=== PATIENT | female | born 1985 | race Caucasian/White ===

== ENCOUNTER 2017-07-13 08:50 | Day surgery (SDC) | payer OTHER, SELFPAY ==
[2017-07-13 09:18] VITALS: BP 103/57; PULSE 98; RESP 14; TEMP 36.6; O2SAT 100; BMI 22.1
[2017-07-13 09:26] LABS: Hematocrit 38.1 % (37-47); Hemoglobin 12.4 g/dl (12.0-15.0); Mean Corp Hgb Conc 32.5 g/gl (32-36); Mean Corpuscular Hgb 26.3 pg (27.0-32.0); Mean Corpuscular Volume 80.9 fL (81-99); Mean Platelet Vol. 9.3 fl (6.2-12.0); Platelet Count 205 K/mm3 (150-450); RBC Distribution Width CV 13.1 % (11.6-14.6); RBC Distribution Width SD 38.7 fl (35.1-43.9); Red Blood Count 4.71 M/mm3 (4.2-5.4); Scan Indicated on CBC? Y/N NO; White Blood Count 5.8 K/mm3 (4.4-11.0)
[2017-07-13] MEDS: Doxycycline 100 MG CAPSULE PO (09:29)
--- NOTE | 2017-07-13 10:15 | POC_PTH ---
PATIENT: MO GAMBOA LOC: [facility] U#:[id number] AGE/SX: 32/F ROOM: RE07/13/[address]: Dr. Isela Mckeon MD : 1985 BED: DIS: 07/13/2017 SPEC #: [id number] RECD: 07/13/17 15:09 STATUS: SHARONA MARIAA #: [id number] ELY: 07/13/17 10:[address]: Isela Mckeon DEPT: SURGICAL PATHOLOGY RECD BY: Ronny Painter ENTERED: 07/13/17 15:10 SP TYPE: PROD CONC OTHR DR: No Primary Care Phys Tissues: Product of conception, NOS Procedures: Surgery Specimen Level IV HEADER OPERATION: Dilation and curettage, suction PRE-OP DIAGNOSIS: Missed TISSUE SUBMITTED: Products of conception MICROSCOPIC DIAGNOSIS Products of conception: Decidua, immature chorionic villi and gestational endometrium (products of conception). SJ:fani 07/17/17 MICROSCOPIC DESCRIPTION Slides are reviewed. GROSS DESCRIPTION Received in fixative is one container labeled with the patient's name and designated POC. The specimen consists of multiple irregular fragments of pink-red soft tissue that in aggregate measure 6 x 5 x 2 cm. tissue is not identified. Bolt Header tissue is submitted in two cassettes. / SJ:fani 07/14/17 TC:5 CPT: 79636
[2017-07-13 12:07] VITALS: BP 103/57; BP 109/76; PULSE 73; RESP 18; TEMP 36.7; O2SAT 100
[2017-07-13 12:10] VITALS: BP 100/70; BP 103/57; PULSE 62; RESP 18; O2SAT 98
[2017-07-13 12:15] VITALS: BP 103/57; BP 99/65; PULSE 68; RESP 18; O2SAT 100
[2017-07-13 12:20] VITALS: BP 102/65; BP 103/57; PULSE 61; RESP 18; TEMP 36.7; O2SAT 100
--- NOTE | 2017-07-13 12:56 | PCM.DC.D&C ---
Discharge Diet: No Restrictions Discharge Activity: Return to Normal Activity, May Shower, May Take a Tub Bath - in 2 weeks. Allergies/Adverse Reactions: Allergies No Known Allergies Allergy (Verified 07/11/17 16:21) Medications to take at Discharge Vits [Prenatabs FA ] 1 tab PO DAILY 09/06/14 Primary Care Physician: Care Physician,No Primary [Primary Care Provider] -
--- NOTE | 2017-07-13 12:57 | PCM.DC.SUM ---
Discharge Date and Diagnosis - Secondary Discharge Diagnosis Chronic Problems (Last Updated 07/10/17 @ 22:38 by Isela Mckeon MD) Missed (Chronic) Hospital Course and Treatment Summary of Care Provided: The patient is a 32 year old F [] Discharge Diet: No Restrictions Discharge Activity: Return to Normal Activity, May Shower, May Take a Tub Bath - in 2 weeks. Home Medications: Medications to take at Discharge Vits [Prenatabs FA ] 1 tab PO DAILY 09/06/14 Primary Care Physician: Care Physician,No Primary [Primary Care Provider] - Medical Necessity - Tobacco Use Smoking Status: Never smoker Meaningful Use Info Meaningful Use Diagnoses (Choose all that apply): None applicable
[2017-07-13 13:34] VITALS: BP 103/57
--- NOTE | 2017-07-14 05:48 | PCM.OPRPT ---
Problem List (1) Missed Status: Chronic Report of Operation Date of Procedure: 07/13/17 Pre-Operative Diagnosis: missed ab Post-Operative Diagnosis: same Surgery/Procedure Performed:: suction d and c Type of Anesthesia:: Local MAC Specimen's removed: poc Drains: none Estimated Blood Loss (mL): 50 Fluids Replaced: crystalloid Description of Procedure: Patient was evaluated preoperatively and found to have a missed at 8 weeks of with a pole only measuring 5 mm with no heart tones seen. Patient was counseled and offered medical management versus surgical and patient chose suction D&C. Patient received IV anesthesia was prepped and draped in normal sterile fashion in the dorsal lithotomy position. Cervix was grasped with ring forceps and previously dilated to allow passage of a 9 mm suction curette. Uterus sounded 9 cm. Multiple passes were made with the suction curette to remove products of conception and then sharp curettage was formed to confirm all removal of packs of conception. All instruments were removed from the vagina and patient was awoken and taken recovery in stable condition. Grafts/Implants Used: none - Complications none - Admit VTE Documentation VTE Present on Admission: No VTE Mechan Device Prophylaxis: SCD's
== END 2017-07-13 13:41 | disposition home or self-care (01) ==
LOC: SDC 08:59 → AC 10:29
PROVIDERS: Visit Provider Obstetrics & Gynecology
PROC: (CPT 59812; principal; 2017-07-13 10:00)
DX: O03.4 Incomplete spontaneous abortion without complication (principal)
CPT/HCPCS: 59812; 36415; 85027; 86850; 86900; 88305; J7120; J2405

== ENCOUNTER 2017-12-07 14:13 | Day surgery (SDC) | payer OTHER, SELFPAY ==
[2017-12-07] VITALS (7 sets, daily range): BP systolic 94–128; BP diastolic 52–78; PULSE 58–85; RESP 16–18; TEMP 36.6; O2SAT 98–100; BMI 21.8
[2017-12-07] MEDS: Doxycycline 100 MG CAPSULE PO (14:45)
[2017-12-07 14:56] LABS: Hemoglobin 12.4 g/dl (12.0-15.0); Mean Corp Hgb Conc 33.5 g/gl (32-36); Mean Corpuscular Hgb 27.1 pg (27.0-32.0); Mean Platelet Vol. 9.5 fl (6.2-12.0); Platelet Count 195 K/mm3 (150-450); RBC Distribution Width CV 13.1 % (11.6-14.6); RBC Distribution Width SD 39.1 fl (35.1-43.9); Red Blood Count 4.57 M/mm3 (4.2-5.4); White Blood Count 7.8 K/mm3 (4.4-11.0)
[2017-12-07 14:57] LABS: Scan Indicated on CBC? Y/N NO
--- NOTE | 2017-12-07 17:09 | PCM.DC.D&C ---
Discharge Diet: No Restrictions Discharge Activity: Return to Normal Activity, May Shower, May Take a Tub Bath Allergies/Adverse Reactions: Allergies No Known Allergies Allergy (Verified 11/23/17 11:51) Medications to take at Discharge Vits [Prenatabs FA ] 1 tab PO DAILY 09/06/14 Primary Care Physician: Care Physician,No Primary [Primary Care Provider] - Test Results: Test results from this visit will be discussed in further detail at your follow-up appointment, if applicable. Please Follow Up With: Isela Mckeon MD - [phone]
[2017-12-07] MEDS: Oxytocin 30 units/NS 500 ml 30 UNITS/500 ML IV.SOLN 167 UNITS IV (17:42)
--- NOTE | 2017-12-07 19:52 | PCM.OPRPT ---
Problem List (1) Missed Status: Acute Report of Operation Date of Procedure: 12/07/17 Pre-Operative Diagnosis: missed ab Post-Operative Diagnosis: same Surgery/Procedure Performed:: suction d and c Description of Surgical Findings:: 10 week AB Type of Anesthesia:: Local MAC Specimen's removed: poc Description of Procedure: She was placed under MAC local anesthesia was prepped and draped in the normal sterile fashion. Cervix was dilated to allow passage of a 10 mm suction curette. Multiple passes were made after the uterus sounded to 10 cm. Products of conception were removed completely and sharp curettage was performed to confirm removal. After all products were felt to be removed all instruments removed from the vagina and excellent hemostasis was noted. Patient was awoken and taken recovery in stable condition. Products were sent to [facility] for genetic analysis per patient request Grafts/Implants Used: none - Complications none
== END 2017-12-07 18:59 | disposition home or self-care (01) ==
LOC: SDC 14:14 → AC 14:16
PROVIDERS: Visit Provider Obstetrics & Gynecology
PROC: (CPT 59812; principal; 2017-12-07 08:45)
DX: O03.4 Incomplete spontaneous abortion without complication (principal)
CPT/HCPCS: 01965; 59812; 36415; 36430; 85027; 86850; 86870; 86900; 86905; 90384; J7120; J2790

== ENCOUNTER → 2018-01-04 16:45 | Outpatient (CLI) | payer OTHER, SELFPAY ==
[2018-01-08 12:07] LABS: Dilute Prothrombin Time (dPT) 39.7 sec (0.0-55.0); Thrombin Time 16.3 sec (0.0-23.0); dPT Confirm Ratio 0.88 Ratio (0.00-1.40)
[2018-01-09 09:01] LABS: Interpretation Comment: (.)
== END ==
PROVIDERS: Referring Provider Obstetrics & Gynecology; Visit Provider Obstetrics & Gynecology
DX: O26.20 Pregnancy care for patient with recurrent pregnancy loss, unspecified trimester (principal); Z3A.00 Weeks of gestation of pregnancy not specified
CPT/HCPCS: 36415

== ENCOUNTER → 2018-10-08 09:47 | Outpatient (CLI) | payer OTHER, SELFPAY ==
[2018-10-08 11:42] LABS: hCG Titer Quant., Serum 1351 mIU/mL (1-3)
== END ==
PROVIDERS: Referring Provider Obstetrics & Gynecology; Visit Provider Obstetrics & Gynecology
DX: O26.20 Pregnancy care for patient with recurrent pregnancy loss, unspecified trimester (principal); Z3A.00 Weeks of gestation of pregnancy not specified
CPT/HCPCS: 36415; 84702

== ENCOUNTER → 2018-10-10 11:32 | Outpatient (CLI) | payer OTHER, SELFPAY ==
[2017-12-07 14:57] VITALS: BMI 21.8
[2018-10-10 12:40] LABS: hCG Titer Quant., Serum 2435 mIU/mL (1-3)
== END ==
PROVIDERS: Referring Provider Obstetrics & Gynecology; Visit Provider Obstetrics & Gynecology
DX: O26.20 Pregnancy care for patient with recurrent pregnancy loss, unspecified trimester (principal); Z3A.00 Weeks of gestation of pregnancy not specified
CPT/HCPCS: 36415; 84702

== ENCOUNTER → 2018-10-24 13:51 | Outpatient (CLI) | payer OTHER, SELFPAY ==
[2018-10-24 13:36] VITALS: BMI 21.8
[2018-10-24 15:21] LABS: hCG Titer Quant., Serum 17952 mIU/mL (1-3)
== END ==
PROVIDERS: Referring Provider Nurse Practitioner Women's Health; Visit Provider Nurse Practitioner Women's Health
DX: O20.0 Threatened abortion (principal); Z3A.00 Weeks of gestation of pregnancy not specified
CPT/HCPCS: 36415; 84702

== ENCOUNTER → 2020-03-20 18:13 | Outpatient (CLI) | payer OTHER, SELFPAY ==
[2018-10-25 14:34] VITALS: BMI 21.8
--- NOTE | 2020-03-20 18:20 | US_ITS ---
STUDY: FIRST TRIMESTER OBSTETRICAL ULTRASOUND REASON FOR EXAM: Female, 34 years old UNCERTAIN DATES. NO HCG HAS BEEN DRAWN FOR THIS SO FAR. LMP: 01/08/2020 TECHNIQUE: Transabdominal TECHNICAL QUALITY: Adequate. PRIOR ULTRASOUND: None. FINDINGS: There is visualization of a single gestational sac in a normal intrauterine position. The mean sac diameter (MSD) measures 4.82 cm. The gestational sac shape is within normal limits. There is a visualized yolk sac. The yolk sac measures 5.9 mm. There is visualization of the placenta (fungal). There is visualization of a live embryo. The crown-rump length (CRL) measures 3.83 cm, indicating an estimated gestational age (EGA) of 10 weeks, 3 days. There is demonstrated cardiac activity with a heart rate of 176 bpm. The estimated gestation age (EGA) by LMP is 10 weeks, 2 days. The estimated date of delivery (BISHNU) by LMP is 10/14/2020. The estimated gestation age (EGA) by US is 10 weeks, 3 days. The estimated date of delivery (BIHSNU) by US is 10/13/2020. The uterus measures 9.5 x 8.1 x 7.6 cm. There is no demonstrated uterine fibroid. The cervix is closed. Right ovary is not visualized. Left ovary is not visualized. There is no fluid in the cul de sac. US/Init OB < 14Wks US IMPRESSION: Single live intrauterine correlating to gestational age of 10 weeks and 3 days. Details above. Electronically Signed: Rafa Cordero MD (Brooks) at 15:23 EST , Service support ,
== END ==
PROVIDERS: Referring Provider Nurse Practitioner Women's Health; Visit Provider Nurse Practitioner Women's Health
DX: O26.20 Pregnancy care for patient with recurrent pregnancy loss, unspecified trimester (principal); Z3A.00 Weeks of gestation of pregnancy not specified
CPT/HCPCS: 76801

== ENCOUNTER → 2020-04-02 10:42 | Outpatient (CLI) | payer OTHER, SELFPAY ==
[2020-04-02 10:10] VITALS: BMI 22.4
[2020-04-02 11:21] LABS: Absolute Lymphocyte Count 1.58 X10^3/uL (0.83-4.51); Absolute Neutrophil Count 4.7 X10^3/uL (2.0-7.7); Basophil# 0.06 X10^3/uL; Basophil% 0.9 % (0-1); Eosinophil# 0.09 X10^3/uL; Eosinophils% 1.3 % (0-5); Hematocrit 39.6 % (37-47); Hemoglobin 13.4 g/dL (12.0-15.0); Lymphocyte # 1.58 X10^3/ul (4.0); Lymphocyte % 22.9 % (19-41); Mean Corp Hgb Conc 33.8 g/dL (32-36); Mean Corpuscular Hgb 27.8 pg (27.0-32.0); Mean Corpuscular Volume 82.2 fL (81-99); Monocyte# 0.43 X10^3/uL; Monocyte% 6.2 % (0-10); NRBC Flagged by Analyzer 0 % (0-5); Neutrophil # 4.68 X10^3/uL (2.7-7.7); Platelet Count 211 K/mm3 (150-450); RBC Distribution Width CV 12.3 % (11.6-14.6); RBC Distribution Width SD 36.6 fl (35.1-43.9); Red Blood Count 4.82 M/mm3 (4.2-5.4); White Blood Count 6.9 K/mm3 (4.4-11.0)
[2020-04-02 12:49] LABS: HIV - WCH Non-Reactive (Nonreactive); Hepatitis B Surface Antigen Non-Reactive (Nonreactive); Hepatitis C Antibody Non-Reactive (Nonreactive); Rubella IgG Reactive (Nonreactive)
[2020-04-05 04:06] LABS: Chlamydia By Nucleic Acid AMP Negative (Negative)
[2020-04-06 09:44] LABS: Gonococcus By Nucleic Acid AMP Negative (Negative)
[2020-04-07 16:23] LABS: HPV APTIMA, High Risk Negative (Negative)
[2020-04-09 03:34] LABS: Rapid Plasmin Reagin (RPR) NONREACTIVE (NONREACTIVE)
== END ==
PROVIDERS: Referring Provider Obstetrics & Gynecology; Visit Provider Obstetrics & Gynecology
DX: O09.90 Supervision of high risk pregnancy, unspecified, unspecified trimester (principal); Z12.4 Encounter for screening for malignant neoplasm of cervix; Z11.3 Encounter for screening for infections with a predominantly sexual mode of transmission; Z3A.00 Weeks of gestation of pregnancy not specified
CPT/HCPCS: 36415; 80307; 85025; 86592; 86703; 86762; 86803; 86850; 86900; 86901; 87086; 87088; 87340; 87491; 87591; 87624; 88175; G0145

== ENCOUNTER → 2020-07-22 15:23 | Outpatient (CLI) | payer OTHER, SELFPAY ==
[2020-06-25 16:05] VITALS: BMI 25.2
[2020-07-22 16:18] LABS: Absolute Lymphocyte Count 1.39 X10^3/uL (0.83-4.51); Absolute Neutrophil Count 8.5 X10^3/uL (2.0-7.7); Basophil# 0.07 X10^3/uL; Basophil% 0.6 % (0-1); Eosinophil# 0.08 X10^3/uL; Eosinophils% 0.7 % (0-5); Hematocrit 36.9 % (37-47); Hemoglobin 11.6 g/dL (12.0-15.0); Lymphocyte # 1.39 X10^3/ul (0.83-4.51); Lymphocyte % 12.9 % (19-41); Mean Corp Hgb Conc 31.4 g/dL (32-36); Mean Corpuscular Hgb 27.4 pg (27.0-32.0); Mean Corpuscular Volume 87.2 fL (81-99); Mean Platelet Vol. 10.7 fl (6.2-12.0); Monocyte# 0.66 X10^3/uL; Monocyte% 6.1 % (0-10); NRBC Flagged by Analyzer 0 % (0-5); Neutrophil # 8.47 X10^3/uL (2.7-7.7); Neutrophil % 78.7 % (47-70); Platelet Count 212 K/mm3 (150-450); RBC Distribution Width CV 12.5 % (11.6-14.6); RBC Distribution Width SD 39.9 fl (35.1-43.9); Red Blood Count 4.23 M/mm3 (4.2-5.4); White Blood Count 10.8 K/mm3 (4.4-11.0)
[2020-07-22 16:57] LABS: Glucose Challenge Gest 1H 50g 114 mg/dL (70-140)
== END ==
LOC: PAVLAB 15:28 → LAB 15:32
PROVIDERS: Referring Provider Nurse Practitioner Women's Health; Visit Provider Nurse Practitioner Women's Health
DX: Z34.90 Encounter for supervision of normal pregnancy, unspecified, unspecified trimester (principal)
CPT/HCPCS: 36415; 82950; 85025; 86850; 86900; 86901

== ENCOUNTER → 2020-08-26 16:05 | Outpatient (CLI) | payer OTHER, SELFPAY ==
[2020-08-19 15:05] VITALS: BMI 26.2
--- NOTE | 2020-08-26 16:07 | US_ITS ---
STUDY: SECOND AND THIRD TRIMESTER OBSTETRICAL ULTRASOUND - LIMITED REASON FOR EXAM: Female, 35 years old covid in early LMP: 01/07/2020 PRIOR ULTRASOUND: 03/20/2020 TECHNIQUE: Transabdominal real-time exam with jay scale image documentation. TECHNICAL QUALITY: Adequate. FINDINGS: There is a single intrauterine fetus. The fetus is in a cephalic presentation. There is demonstrated cardiac activity with a heart rate of 135 bpm. There is a normal amniotic fluid volume. The largest amniotic fluid pocket measures 5.59 cm. The amniotic fluid index (PIERRE) is 14.3 cm. The placenta is posterior and not low lying. There are Grade 2 placental changes. The cervix measures 3.2 cm in length. BIOMETRY: BPD: 8.01 cm: 32 weeks, 2 days HC: 30.7 cm: 34 weeks, 3 days AC: 31.1 cm: 35 weeks, 1 days FL: 6.65 cm: 34 weeks, 3 days Age by LMP: 33 weeks, 1 days. BISHNU by LMP: 10/13/2020. age by prior US: 33 weeks, 0 days. BISHNU by prior US: 10/14/2020. age by current US: 34 weeks, 1 days. BISHNU by current US: 10/06/2020. Estimated weight: 2431 grams, +/- 355 grams, 80 percentile. Gender: Male US/OB Limited With Biometrics IMPRESSION: Single living male intrauterine fetus of 34 weeks and 1 day with an BISHNU of 10/06/2020. Normal amniotic fluid index of 14.3 cm. Grade 2, posterior and not low lying placenta. Cervical length 3.2 cm. Estimated weight 2431 g +/- 355 g, 80 percentile Electronically Signed: Enid Morse MD at 22:43 EDT , Service support ,
== END ==
PROVIDERS: Referring Provider Nurse Practitioner Women's Health; Visit Provider Nurse Practitioner Women's Health
DX: O09.91 Supervision of high risk pregnancy, unspecified, first trimester (principal); B94.8 Sequelae of other specified infectious and parasitic diseases; Z3A.00 Weeks of gestation of pregnancy not specified
CPT/HCPCS: 76816

== ENCOUNTER → 2020-09-15 14:56 | Outpatient (CLI) | payer OTHER, SELFPAY ==
[2020-09-15 10:18] VITALS: BMI 26.2
== END ==
PROVIDERS: Referring Provider Obstetrics & Gynecology; Visit Provider Obstetrics & Gynecology
DX: Z34.90 Encounter for supervision of normal pregnancy, unspecified, unspecified trimester (principal)
CPT/HCPCS: 87081

== ENCOUNTER → 2020-09-24 11:32 | Outpatient (CLI) | payer OTHER, SELFPAY ==
[2020-09-01 16:13] VITALS: BMI 26.2
[2020-09-15 10:18] VITALS: BMI 26.2
--- NOTE | 2020-09-24 11:33 | US_ITS ---
STUDY: SECOND AND THIRD TRIMESTER OBSTETRICAL ULTRASOUND - LIMITED REASON FOR EXAM: Female, 35 years old growth LMP: 01/07/2020. PRIOR ULTRASOUND: Comparison is made with prior study of 08/26/2020. TECHNIQUE: Transabdominal TECHNICAL QUALITY: Adequate. FINDINGS: There is a single intrauterine fetus. The fetus is in a cephalic presentation. There is demonstrated cardiac activity with a heart rate of 151 bpm. There is a normal amniotic fluid volume. The largest amniotic fluid pocket measures 4.2 cm. The amniotic fluid index (PIERRE) is 13.18 cm. The placenta is fundal in location. There are Grade 3 placental changes. The cervical length was not measured due to the head position. BIOMETRY: BPD: 8.7 cm: 35 weeks, 0 days HC: 32.47 cm: 36 weeks, 5 days AC: 35.48 cm: 39 weeks, 2 days FL: 7.38 cm: 37 weeks, 0 days Age by LMP: 37 weeks, 2 days. BISHNU by LMP: 10/13/2020. age by prior US: 38 weeks, 2 days. BISHNU by prior US: 10/06/2020. age by current US: 37 weeks, 1 days. BISHNU by current US: 10/14/2020. Estimated weight: 3456 grams, +/- 518 grams, 82 percentile. US/OB Limited With Biometrics IMPRESSION: Single live intrauterine gestation with mean gestational age of 30 weeks and 2 days. The measurements obtained today follow within the normal expected range. Electronically Signed: Dilshad Fraire MD at 13:30 EDT , Service support ,
== END ==
PROVIDERS: Referring Provider Nurse Practitioner Women's Health; Visit Provider Nurse Practitioner Women's Health
DX: B94.8 Sequelae of other specified infectious and parasitic diseases (principal)
CPT/HCPCS: 76816

== ENCOUNTER 2020-10-13 14:00 | Inpatient (IN) | payer OTHER, SELFPAY ==
[2020-10-13] VITALS (30 sets, daily range): BP systolic 88–164; BP diastolic 44–133; PULSE 73–118; TEMP 36.7–36.9; O2SAT 82–100; BMI 26.2; BMI 28.5
[2020-10-13] MEDS: Lactated Ringers 1,000 ML 50 ML IV (16:00)
[2020-10-13 16:21] LABS: Absolute Lymphocyte Count 1.71 X10^3/uL (0.83-4.51); Absolute Neutrophil Count 8.4 X10^3/uL (2.0-7.7); Basophil# 0.09 X10^3/uL; Basophil% 0.8 % (0-1); Eosinophil# 0.06 X10^3/uL; Eosinophils% 0.5 % (0-5); Hematocrit 35.9 % (37-47); Hemoglobin 11.5 g/dL (12.0-15.0); Lymphocyte # 1.71 X10^3/ul (0.83-4.51); Lymphocyte % 14.6 % (19-41); Mean Corpuscular Hgb 25.4 pg (27.0-32.0); Mean Corpuscular Volume 79.2 fL (81-99); Mean Platelet Vol. 11.3 fl (6.2-12.0); Monocyte# 1.14 X10^3/uL; Monocyte% 9.8 % (0-10); NRBC Flagged by Analyzer 0 % (0-5); Neutrophil # 8.42 X10^3/uL (2.7-7.7); Neutrophil % 72.1 % (47-70); Platelet Count 197 K/mm3 (150-450); RBC Distribution Width CV 14.3 % (11.6-14.6); RBC Distribution Width SD 40.4 fl (35.1-43.9); Red Blood Count 4.53 M/mm3 (4.2-5.4); White Blood Count 11.7 K/mm3 (4.4-11.0)
[2020-10-13] MEDS: Oxytocin 30 units/NS 500 ml 30 UNITS/500 ML IV.SOLN IV (16:55)
[2020-10-13] MEDS: 0.9% Normal Saline Single 100 ML IV.SOLN. INTRA-UTER (17:05)
--- NOTE | 2020-10-13 17:40 | HP.PCM_ITS ---
History and Physical Date of Admission: 10/13/20 Vital Signs 10/13/20 13:27 10/13/20 13:28 Height 5 ft 4 in Weight: 167 lb BMI 28.6 26.2 BP 128/76 H Intake Visit Reasons: 40 WK OB Chief Complaint: est ob [place] Upholsterer Required: No Is patient in pain?: No Allergies No Known Allergies Allergy (Verified 09/25/20 13:55) Medications vit,[id number] 1 tab PO DAILY 09/06/14 [History Confirmed 10/13/20] aspirin 81 mg chewable tablet 81 mg PO DAILY 05/06/20 [History Confirmed 10/13/20] famotidine 20 mg tablet 20 mg PO DAILY #30 tab 06/25/20 [Rx Confirmed 10/13/20] promethazine 12.5 mg tablet 12.5 mg PO TID PRN #60 tab 06/25/20 [Rx Confirmed 10/13/20] Last Menstral Period: 01/08/20 Zika: Zika virus screening: Negative : No PFSH PFS Medical History (Updated 10/13/20 @ 13:28 by My Brumfield) Abnormal karyotype Surgical History History of surgery on wrist S/P appendectomy S/P dilation and curettage Family History Grandmother Alzheimer disease Other Breast cancer Social History household members: family number of children: 1 current occupational status: employed Smoking Status: Never smoker alcohol intake: never substance use type: does not use caffeine: No what type of physical activity do you participate in: none seatbelt use: always do you feel safe at home: Yes additional social history: - Alfonso-Bulmaro Diaz 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 Date Name GA/Weeks Outcome Route Bth Weight Gen Labor Lgth Anesthesia Del Locatn Provider FOB 09/06/14 Valerie 40 live - full term 6 lbs. 7 oz Female epidural [facility] Dr. Mike Hamilton HPI 40 WK OB Details: MO GAMBOA is a 35 year old who presents for routine OB visit. upon evaluation her FH was low and oligo was diagnosed on ultrasound OB Visit BISHNU Calculator Estimated Delivery Date Method Current WG Current Estimate 10/13/20 Ultrasound #1 40w 0d Expected Delivery Route/Plan with SM Labor Preferences- CB/BF classes: no labor support person: Miguel labor intervention preferences: [] pain management options preferred: epidural cut cord/dad catch: cord : yes PP control planned: IUD discussed possible routes of delivery and associated risks: [] special requests: [] Specific Issue/Plans covid status: pos april flu vaccine: decline tdap vaccine: given rhogam: given LARC form signed: yes movement and labor precautions reviewed. Problem list reviewed and updated with the most current plan of care details and appropriate orders placed. Relevant counseling for the gestational age provided. Continue routine care and follow up unless otherwise noted in visit notes/problem list details Initial Weight: 130 lb Date EGA Weight BP Urine Prot Glucose FHR FuHt Pres Dilation Effaced St Visit Note 04/02/20 12w 2d 131 lb (+16 oz) 100/60 155 GP - CRL 65mm consistent with prior US. 04/15/20 14w 1d 133 lb (+3 lb) 90/62 Negative Negative 145 GP - no cramping or bleeding. Ultrasound used to confirm FHR. PRR. 05/06/20 17w 1d 134 lb 4 oz (+4 lb 4 oz) 100/62 Negative Negative 150 MH-No VB, LOF. Starting to feel flutters. Order for MFM anatomy US 05/27/20 20w 1d 137 lb 2 oz (+7 lb 2 oz) 100/60 Trace Negative 148 MH-NO VB, LOF. Good FM. Denies concerns. Anatomy US with MFM tomorrow. 06/25/20 24w 2d 147 lb (+17 lb) 102/60 Negative Negative 145 SM- no vb lof good fm co GERD 07/22/20 28w 1d 153 lb 2 oz (+23 lb 2 oz) 100/60 Negative Negative 141 27 28 MH-No VB, LOF. Good FM. 28 wk labs, rhogam, tdap Larc. 08/05/20 30w 1d 153 lb 6 oz (+23 lb 6 oz) 106/60 Trace Negative 146 30 MH-NO VB, LOF. Good FM. No CTX. Denies concerns. 08/19/20 32w 1d 158 lb (+28 lb) 106/66 Trace Negative 145 32 MH-No VB, LOF. Good FM. Nl 28 wk labs 09/01/20 34w 0d 159 lb (+29 lb) Negative Negative 145 34 35 SM- no vb lof good fm no regular ctx 09/15/20 36w 0d 100/72 100/72 145 36 SM- no vb lof good fm no regular ctx 09/25/20 37w 3d 166 lb 2 oz (+36 lb 2 oz) 100/64 Negative Negative 140 37 Cephalic 0 SM- no vb lof good fm no reuglar ctx 10/01/20 38w 2d 168 lb (+38 lb) 110/70 140 38 Cephalic 0 SM- no vb lof good fm no reuglar ctx 10/08/20 39w 2d 166 lb (+36 lb) 102/82 Negative Negative 140 39 Cephalic 1 40 -2 SM- no vb lof good fm no regular ctx 10/13/20 40w 0d 167 lb (+37 lb) 128/76 Negative Negative 140 35 Cephalic 2 70 -1 SM- co some dec fm. on evaluation, had low FH so PIERRE check and 5 cm, recommend IOL due to dec fm and low PIERRE. ACOG First Trimester First Trimester: Desire for , Alcohol, Tobacco Cessation, Illicit/Recreational Drug/Substance Use, Intimate Partner Violence, Barriers to care, Unstable Housing, Communication Barriers, Environmental/Work Hazards, Anticipated Course of Care, Toxoplasmosis Precations, Use of Any medications, Sexual activity, Exercise, Dental Care, Sauna/Hot tub use, Seat Belt use, Childbirth classes/Hospital facilities, , Travel, Indications for Ultrasound and Screening for Aneuploidy Second Trimester Second Trimester: Signs and Symptoms of Labor, Selecting a care provider, Reproductive Life Planning & Contreception, Depression/Anxiety and Intimate Partner Violence Third Trimester Third Trimester: Pain Management Plans, Labor support person(s), Immediate Larc, Circumcision preference, Movement Monitoring, Signs and Symptoms of Preeclampsia, Labor Signs and Infant Feeding Yes Diagnostics Diagnostics Diagnostics: Blood Type A NEGATIVE Antibody Screen NEGATIVE Glucose 1 Hr 50 gm 114 mg/dL (70-140) Hgb 11.6 g/dL (12.0-15.0) L Hct 36.9 % (37-47) L Details: HIV: Urine Culture: Sequential Screen: NIPT Screen: ROS Const Reports system reviewed and no additional complaints, except as documented Card Reports system reviewed and no additional complaints, except as documented Resp Reports system reviewed and no additional complaints, except as documented GI Reports system reviewed and no additional complaints, except as documented and Reports nausea Reports system reviewed and no additional complaints, except as documented Musc Reports system reviewed and no additional complaints, except as documented Exam Const General: cooperative, healthy appearing, comfortable and anxious HENMT Head: normal to inspection Nose: external nose normal Face and sinus: normal facial exam Neck Neck: normal visual inspection, full ROM and no lymphadenopathy Thyroid: thyroid normal Chest Chest palpation & inspection: normal inspection of the chest Resp Effort & Inspection: normal respiratory effort GI Inspection: normal to inspection Palpation: soft and other (gravid uterus) Other: infant vertex and appropriate size for gestational age Other: Cervical Exam: Extrem General: pedal edema Results POC Urinalysis 2 Dip (Clinic) Office Urine Glucose Negative Last Edit by My Brumfield on 10/13/20 13:31 Office Urine Protein Negative Last Edit by My Brumfield on 10/13/20 13:31 Coding Level of Care Code OB Routine Diagnoses 35 weeks gestation of Z3A.35 History of tetanus, diphtheria, and acellular pertussis booster vaccination (Tdap) Z92.29 Post-COVID syndrome B94.8 ASCUS of cervix with negative high risk HPV R87.610 Abnormal karyotype R89.8 Z3A.40 Weeks of gestation: 40 weeks Antibody E isoimmunization affecting , antepartum O36.0990 Rh negative status during O09.891; Z67.91 Trimester: first trimester complicated by previous recurrent miscarriages O26.21 Trimester: first trimester Supervision of high-risk O09.93 Trimester: third trimester Assessment and Plan Assessment and Plan (1) 35 weeks gestation of : Status: Acute Comment: electronic covid test ordered 09/08/20 (2) History of tetanus, diphtheria, and acellular pertussis booster vaccination (Tdap): Status: Acute Comment: 07/22/20 (3) Post-COVID syndrome: Status: Acute Comment: daily ASA. Growth US 80% 08/26. 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 Isela Mckeon MD: recommend IOL with pitocin due to oligo. gbs neg. epi PRN (7) Antibody E isoimmunization affecting , antepartum: Status: Acute Comment: In last . Antibody screen negative on NOB. (8) Rh negative status during : Status: Acute Qualifiers: Trimester: first trimester Qualified Code(s): O09.891 - Supervision of other high risk pregnancies, first trimester; Z67.91 - Unspecified blood type, Rh negative Comment: rhogam at 28 weeks and PRN (9) complicated by previous recurrent miscarriages: Status: Acute Qualifiers: Trimester: first trimester Qualified Code(s): O26.21 - care for patient with recurrent loss, first trimester Comment: q2 week visits through 20 weeks. patient has chromosomal abnormality predisposi ng to loss (10) Supervision of high-risk : Status: Acute Qualifiers: Trimester: third trimester Qualified Code(s): O09.93 - Supervision of high risk , unspecified, third trimester Comment: PRR BISHNU 10/13/[address] Alfonso
[2020-10-13] MEDS: Lactated Ringers 500 ML 999 ML IV ×3 (18:15→21:40)
[2020-10-13] MEDS: fentaNYL-bupivacaine (epidural) 100 ML BAG EPIDURAL (19:43)
[2020-10-13] MEDS: Mag Hydrox/Al Hydrox/Simeth 30 ML UDC PO (19:53)
[2020-10-13] MEDS: Lactated Ringers 1,000 ML 200 ML IV (21:59)
--- NOTE | 2020-10-13 23:08 | PCM.PN.BLA ---
Progress Note some periods of absent variability, srom clear fluid, 5-6 cm 80 -1 station current tracing: FHT: 130minimal to Moderate variability reactive no decelerations category II tracing [place]: q3 Contractions reviewed tracing abnormalities since last note: absent variability occasional variable A/P: continue exp management, pitocin based on tracing and labor progress needs
[2020-10-14] VITALS (19 sets, daily range): BP systolic 95–119; BP diastolic 44–83; PULSE 73–97; RESP 16–18; TEMP 36.1–37.1
[2020-10-14] MEDS: Mag Hydrox/Al Hydrox/Simeth 30 ML UDC PO (00:14)
[2020-10-14] MEDS: fentaNYL-bupivacaine (epidural) 100 ML BAG EPIDURAL (01:00)
--- NOTE | 2020-10-14 01:13 | OP.PCM_ITS ---
Assessment & Plan (1) 35 weeks gestation of : COMMENT: electronic covid test ordered 09/08/20 (2) History of tetanus, diphtheria, and acellular pertussis booster vaccination (Tdap): COMMENT: 07/22/20 (3) Post-COVID syndrome: COMMENT: daily ASA. Growth US 80% 08/26. Rpt 36 wk (4) ASCUS of cervix with negative high risk HPV: COMMENT: rpt 3 yr:03/2023 (5) Abnormal karyotype: COMMENT: Maternal Chromosomal translocation (6) Supervision of high-risk : QUALIFIERS: Trimester: third trimester Qualified Code(s): O09.93 - Supervision of high risk , unspecified, third trimester COMMENT: PRR BISHNU 10/13/[address] Alfonso (7) complicated by previous recurrent miscarriages: QUALIFIERS: Trimester: first trimester Qualified Code(s): O26.21 - care for patient with recurrent loss, first trimester COMMENT: q2 week visits through 20 weeks. patient has chromosomal abnormality predisposing to loss (8) Rh negative status during : QUALIFIERS: Trimester: first trimester Qualified Code(s): O09.891 - Supervision of other high risk pregnancies, first trimester; Z67.91 - Unspecified blood type, Rh negative COMMENT: rhogam at 28 weeks and PRN (9) Antibody E isoimmunization affecting , antepartum: COMMENT: In last . Antibody screen negative on NOB. (10) : QUALIFIERS: Weeks of gestation: 40 weeks Qualified Code(s): Z3A.40 - 40 weeks gestation of COMMENT: declines NIPT, carrier, and AFP; NL anatomy (11) Oligohydramnios: Maternal Data Information BISHNU Calculator Estimated Delivery Date Method Current WG Current Estimate 10/13/20 Ultrasound #1 40w 1d Vaginal Delivery Maternal Presentation Maternal Presentation: Medically Indicated Induction Type of Induction: Pitocin Medical Reason for Induction: - (oligo) Operative Information Date of Procedure: 10/14/20 Pre-Operative Diagnosis: IOL oligo, see problem list Post-Operative Diagnosis: same Surgery / Procedure Performed: Spontaneous Vaginal Delivery Type of Anesthesia: Epidural Special Medications: none Estimated Blood Loss: 100 Fluids Replaced: crystalloid Findings Description of Procedure: Patient began pushing and delivered the head in the MARGARITO presentation. The head was delivered atraumatically . The anterior and posterior shoulders delivered without complication followed by the rest of the infant and the was placed on the maternal abdomen. Delayed cord clamping was employed for approximately 60 seconds. Cord was clamped and cut and gentle traction was applied to the cord and the placenta delivered spontaneously immediately following it was noted to be intact with three-vessel cord. The perineum and vagina were inspected and noted to have a second-degree perineal laceration repaired in the usual fashion with 3-0 Vicryl Rapide. EBL was 100 cc. Patient and infant tolerated delivery well. Presentation: MARGARITO Amniotic Membrane Rupture Type: Spontaneous Amniotic Fluid Description: Clear Placental Delivery Description: Spontaneous Placenta Disposition: [facility] Cord Vessel Description: 3 Vessels Cord Entanglement: None Infant A Gender: Male Delayed Cord Clamping: Yes Post Vaginal Delivery Medications Given After Delivery: IV Pitocin Episiotomy Description: None Laceration: None Complication Complications: None Procedures Urinary/Genital [id number]: [id number] Vaginal Delivery [facility]
--- NOTE | 2020-10-14 01:16 | PCM.DC ---
Documented by User: Dr. Isela Mckeon MD 10/14/20 01:17 Discharge Instructions Follow Up Care Test Results: Test results from this visit will be discussed in further detail at your follow-up appointment, if applicable. Discharge Plan Admission Admit Date/Time: 10/13/20 14:00 Primary Reason for Your Visit: vaginal delivery Attending Provider: Isela Mckeon Primary Care Provider: Care Physician,No Primary Discharge Orders/Prescriptions Prescriptions: Continued vit,[id number] 1 TABLET tablet 1 tab PO DAILY RF: 0 Discontinued aspirin 81 mg tablet,chewable 81 mg PO DAILY RF: 0 promethazine 12.5 mg tablet 12.5 mg PO TID PRN (Reason: nausea and vomiting) Qty: 60 RF: 1 famotidine [Pepcid] 20 mg tablet 20 mg PO DAILY RF: 0 Referrals / Follow Up: Isela Mckeon MD [STAFF PHYSICIAN] - Care Physician,No Primary [Primary Care Provider] - Disposition Disposition (needs filled in before D/C Order can be placed): Home, Self Care Documented by User: Sujata Estevez NP, [employer] 10/15/20 08:09 Discharge Instructions Diet Discharge Diet: No restrictions Activity Discharge Activity: Return to Normal Activity, May Not Drive (while taking narcotic pain medications.) and May Shower May resume sexual activity in: 4 weeks (nothing in the vagina for 4 weeks.) Additional Activity Instructions:: Nothing in the vagina for 4-6 weeks. You may return to work/school in 6 weeks. Dressing / Incision Call your doctor if your incision/area has: Continuous Slow Oozing, Sudden Increased Bleeding, Increased Pain/ Swelling, Increased Redness and Foul Smelling Discharge Follow Up Care When: Call to make an appointment with your doctor in 6 weeks. If you had elevated Blood Pressure or 4th degree laceration you will need to be seen in 2 weeks. Discharge Plan Admission Admit Date/Time: 10/13/20 14:00 Primary Reason for Your Visit: vaginal delivery Attending Provider: Isela Mckeon Primary Care Provider: Care Physician,No Primary Discharge Orders/Prescriptions Prescriptions: Continued vit,[id number] 1 TABLET tablet 1 tab PO DAILY RF: 0 Discontinued aspirin 81 mg tablet,chewable 81 mg PO DAILY RF: 0 promethazine 12.5 mg tablet 12.5 mg PO TID PRN (Reason: nausea and vomiting) Qty: 60 RF: 1 famotidine [Pepcid] 20 mg tablet 20 mg PO DAILY RF: 0 Referrals / Follow Up: Isela Mckeon MD [STAFF PHYSICIAN] - Care Physician,No Primary [Primary Care Provider] - Disposition Disposition (needs filled in before D/C Order can be placed): Home, Self Care
[2020-10-14] MEDS: Ondansetron 4 MG/2 ML Vial IV (01:28)
[2020-10-14] MEDS: Oxytocin 30 units/NS 500 ml 30 UNITS/500 ML IV.SOLN 334 UNITS IV (01:47)
[2020-10-14] MEDS: Acetaminophen 500 MG Tablet 1000 MG PO (07:38)
[2020-10-14] MEDS: Benzocaine/Lanolin/Aloe Vera 1 SPRAY EACH TOPICAL (07:38)
[2020-10-14] MEDS: Naproxen 500 MG Tablet PO (12:26)
[2020-10-14] MEDS: Prenatal Vits Tablet 1 TABLET PO (12:26)
[2020-10-15 03:58] VITALS: BP 94/52; PULSE 81; RESP 18; TEMP 36.2
[2020-10-15 08:00] VITALS: BP 102/57; PULSE 72; RESP 16; TEMP 36.2
--- NOTE | 2020-10-15 08:05 | PCM.PN.OB ---
Subjective Subjective Patient doing well without complaints. Tolerating PO. Ambulating and voiding without difficulty. well. Denies chest pain, shortness of breath, calf pain/swelling, fevers, chills, lightheadedness. Objective Data Objective Data Vital Signs: Vital Signs Temp Pulse Resp BP Pulse Ox 97.2 F L 81 18 94/52 L 100 10/15/20 03:58 10/15/20 03:58 10/15/20 03:58 10/15/20 03:58 10/13/20 23:11 Oxygen Delivery Method Room Air Weight: 166 lb Body Mass Index (BMI) 28.5 Intake & Output: Intake and Output for Last 24 Hours 10/13/20 10/14/20 10/15/20 23:59 23:59 23:59 Intake Total 2506.30 / 2506.30 1333.33 / 1333.33 Output Total 1200 / 1200 1500 / 1500 Balance 1306.30 / 1306.30 -166.67 / -166.67 Lab / Micro Data Result Diagrams: 10/13/20 16:00 Micro: Microbiology 10/13/20 15:35 Mucosa - Nose SARS-CoV-2 Antigen (Rapid) - Final Physical Exam Const alert and oriented x3 HEENT normocephalic Eyes PERRL Neck full ROM Resp normal respiratory effort GI soft to palpation GI Narrative: FF below U Assessment & Plan (1) Vaginal delivery: PLAN: s/p PPD # 1 1. routine post delivery care 2. breast feeding- support given 3. rh negative/rhogam 4. rubella immune 5. home today
[2020-10-15] MEDS: Prenatal Vits Tablet 1 TABLET PO (10:06)
--- NOTE | 2020-10-21 17:00 | NURSING ---
Mother doing well, really liked [place]
== END 2020-10-15 12:10 | disposition home or self-care (01) | DRG 807 ==
PROVIDERS: Admitting Provider Obstetrics & Gynecology; Visit Provider Obstetrics & Gynecology
DX: O41.03X0 Oligohydramnios, third trimester, not applicable or unspecified (principal); Z37.0 Single live birth; Z3A.40 40 weeks gestation of pregnancy; Z86.16 Personal history of COVID-19; R87.610 Atypical squamous cells of undetermined significance on cytologic smear of cervix (ASC-US); O26.23 Pregnancy care for patient with recurrent pregnancy loss, third trimester; Q99.8 Other specified chromosome abnormalities; O70.1 Second degree perineal laceration during delivery
CPT/HCPCS: 59025; 59050; 85025; 86850; 86870; 86900; 86901; 86902; 86920; 86922; 87426; 99218; J7120; G0378; J2405